=== PATIENT | female | born 1985 | race Hispanic/Latino ===

== ENCOUNTER 2021-05-13 05:30 | Inpatient (IN) | payer MEDICAID, OTHER ==
[2021-05-13 06:50] VITALS: BMI 29.5
[2021-05-13] MEDS: Lactated Ringer's 1,000 ML IV SCH ×3 (06:50→09:12)
[2021-05-13] MEDS ORDERED: Methylergonovine 0.2 MG/ML VIAL IM PRN (07:38)
[2021-05-13] MEDS ORDERED: Lidocaine 1% (PF) 30 ML VIAL SC PRN (07:38)
[2021-05-13] MEDS ORDERED: HYDROcodone/Acetaminophen 5/325 mg Tablet PO PRN ×2 (07:38→18:30)
[2021-05-13] MEDS ORDERED: Misoprostol 200 MCG TAB PR PRN (07:38)
[2021-05-13] MEDS ORDERED: Acetaminophen 500 MG TAB PO PRN (07:38)
[2021-05-13] MEDS ORDERED: Ibuprofen 800 MG TAB PO PRN (07:38)
[2021-05-13] MEDS ORDERED: Ondansetron PF 4 MG/2 ML Vial IVP PRN ×3 (07:38→18:30)
[2021-05-13] MEDS ORDERED: Butorphanol Tartrate 1 MG/ML VIAL SLOW IVP PRN (07:38)
[2021-05-13] MEDS ORDERED: Diphenoxylate HCl/Atropine Tablet PO PRN (07:38)
[2021-05-13] MEDS ORDERED: Promethazine HCl 25 MG/ML VIAL IM PRN ×3 (07:38→18:30)
[2021-05-13] MEDS ORDERED: hydrALAZINE 20 MG/ML VIAL SLOW IVP PRN ×2 (07:38→18:30)
[2021-05-13] MEDS ORDERED: Carboprost 250 MCG/ML AMP IM PRN (07:38)
[2021-05-13] MEDS ORDERED: NS w/ Oxytocin 30 units 500 ML IV SCH ×3 (07:45→18:30)
[2021-05-13] MEDS ORDERED: NS w/ Oxytocin 30 units 500 ML IVPB SCH (07:45)
[2021-05-13] MEDS ORDERED: NS w/ Oxytocin 30 units 500 ML ONE (08:05)
[2021-05-13 08:26] LABS: Hemoglobin 9.3 g/dL (12.0-15.5); Mean Corpuscular HGB CONC 31.1 g/dL (32.0-36.0); Mean Corpuscular Volume 80.4 fl (81.6-98.3); Mean Platelet Volume 12.5 fl (7.4-10.4); Platelet Count 293 10x3/uL (150-450); Red Blood Cell (RBC) Count 3.72 10x6/uL (3.90-5.03); White Blood Cell (WBC) Count 6.5 10x3/uL (3.5-10.5)
[2021-05-13] MEDS ORDERED: Fentanyl 2 mcg/Bup 0.1% Cadd 100 ML ONE ×2 (08:28→15:39)
[2021-05-13 09:00] LABS: Hep B Surf Ag Non-Reactive S/CO (NonReactive); Syphilis Antibody Nonreactive (Nonreactive); Syphilis Antibody Index 0.06 S/CO (<1.00 Non-Reactive)
[2021-05-13] MEDS ORDERED: Hydrocerin (Eucerin) Cream 120 gm Jar TOP PRN (09:09)
[2021-05-13] MEDS ORDERED: Naloxone HCl 0.4 mg/ml Vial IVP PRN ×2 (09:09)
[2021-05-13] MEDS ORDERED: ePHEDrine Sulfate 50 MG/10 ML VIAL SLOW IVP PRN (09:09)
[2021-05-13] MEDS ORDERED: Lactated Ringer's 500 ML IV PRN (09:09)
[2021-05-13] MEDS ORDERED: diphenhydrAMINE 50 MG/ML VIAL IVP PRN (09:09)
[2021-05-13] MEDS ORDERED: Acetaminophen 325 MG TAB PO PRN (09:09)
[2021-05-13 09:15] LABS: HBSAg Index 0.16 S/CO (0-0.99)
[2021-05-13] MEDS ORDERED: Communication Order-Pharmacy FS SCH (09:15)
[2021-05-13] MEDS ORDERED: Fentanyl 2 mcg/Bupivacaine 0.1% Cassette 100 ML EPIDURAL SCH (09:15)
[2021-05-13] MEDS ORDERED: Boostrix 0.5 ML (Tdap) VIAL IM ONE (18:30)
[2021-05-13] MEDS ORDERED: Bisacodyl 10 MG SUPP PR PRN (18:30)
[2021-05-13] MEDS ORDERED: Lanolin Ointment 7 GM TUBE TOP PRN (18:30)
[2021-05-13] MEDS ORDERED: Milk Of Magnesia 30 ML UDCUP PO PRN (18:30)
[2021-05-13] MEDS ORDERED: diphenhydrAMINE 25 MG CAP PO PRN (18:30)
[2021-05-13] MEDS: Ibuprofen 800 MG TAB PO SCH (20:23)
[2021-05-13] MEDS: Docusate Calcium (SURFAK) 240 MG CAP PO SCH (22:06)
[2021-05-14] MEDS: Ibuprofen 800 MG TAB PO SCH ×2 (05:06→13:32)
[2021-05-14] MEDS ORDERED: Ferrous Sulfate 325 MG TAB PO SCH (08:00)
[2021-05-14] MEDS: Docusate Calcium (SURFAK) 240 MG CAP PO SCH (08:51)
[2021-05-14] MEDS ORDERED: Prenatal Vitamin 1 TAB PO SCH (09:00)
[2021-05-14 19:18] VITALS: BP 106/57; TEMP 98.1
== END 2021-05-14 18:20 | disposition home or self-care (01) | DRG 807 ==
LOC: CSHLD 05:59 → CSHPP 19:51
PROVIDERS: ADMIT Family Medicine; ATTEND Family Medicine
PROC: 10E0XZZ Delivery of Products of Conception, External Approach (ICD-10-PCS; principal; 2021-05-13)
PROC: 10907ZC Drainage of Amniotic Fluid, Therapeutic from Products of Conception, Via Natural or Artificial Opening (ICD-10-PCS; 2021-05-13)
PROC: 3E033VJ Introduction of Other Hormone into Peripheral Vein, Percutaneous Approach (ICD-10-PCS; 2021-05-13)
DX: O80 Encounter for full-term uncomplicated delivery (principal); Z37.0 Single live birth; Z3A.40 40 weeks gestation of pregnancy
CPT/HCPCS: 36415; 51702; 85027; 86780; 86850; 86900; 86901; 87340; J2590; J7120